=== PATIENT | female | born 1995 | race Caucasian/White ===

== ENCOUNTER → 2017-03-31 | Outpatient (CLI) | payer OTHER ==
--- NOTE | 2017-03-31 14:50 | RADONC ---
RADIATION ONCOLOGY CONSULTATION NOTE: DATE: 03/31/2017 CHART NO: [id number] DIAGNOSIS: Left parotid cancer. STAGE: I, T1N0MX. ECOG PERFORMANCE STATUS: 0 Ms. 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 She is now presenting for discussion of any need for radiation therapy as well as for a scheduling routine followup. HISTORY OF PRESENT ILLNESS: The patient reports that she had a small bump over her left parotid gland since she was in high school. This has gone on for many years but more recently began to increase somewhat. On 03/02/2017, the patient underwent left total parotidectomy with facial nerve identification, left modified radical neck dissection levels II, III, IV with sparing of the sternocleidomastoid mastoid muscle, internal jugular vein and the eleventh cranial nerve. Pathology revealed a small well differentiated mucoepidermoid carcinoma measuring 0.9 cm x 0.8 cm x 0.8 cm. The specimen size was 5 cm x 2.5 cm x 1.3 cm. All margins of resection were negative for malignancy, the closest margin being 0.3 cm away. Lymph vascular invasion was not identified. Perineural invasion was not identified. A total of 14 neck nodes were sampled and all were negative for malignancy. One intraparotid lymph node was found and was also negative for malignancy. The patient has done well since surgery and is now presenting for discussion of any possible external beam radiation therapy as well as for followup. PAST MEDICAL HISTORY: The patient's past medical history is positive for asthma. ALLERGIES: The patient has NO KNOWN DRUG ALLERGIES. SOCIAL HISTORY: The patient does not smoke cigarettes. She drinks alcohol rarely. FAMILY HISTORY: The patient's family history is positive for paternal grandmother with thyroid cancer, a paternal aunt with ovarian cancer, and a maternal aunt with colon cancer. REVIEW OF SYSTEMS: The patient's review of systems is positive for some difficulty chewing, but is otherwise noncontributory. She denies nausea, vomiting, fevers, chills, night sweats, diplopia, headaches, anxiety or depression, anorexia, weight loss, visual disturbances, chest pain, urinary or bowel difficulties, bone pain, or neurological problems. IMAGING STUDIES: I do not at this time have the patients CT scan here to actually view. ASSESSMENT: The patient is clinically doing well at this point. We have reviewed the NCCN guidelines with regards to a low grade parotid tumor, which is totally resected. The recommendation is to observe unless there is perineural invasion or tumor spillage. Since neither are present in this patient with her longstanding low grade small malignancy, I believe observation is the preferred management option. Radiation would be quite toxic. I have discussed these NCCN guidelines with her in detail and indeed she already had a copy of this. Of concern, the patient had a PET scan done on 02/25/2017 in [place], [place]. PET/CT scan revealed a prominent focal metabolic activity just superior to the uterus presumably within the left ovary. The SUV value was 13.6. No other areas of abnormality were seen. They noted that the finding was nonspecific, but I have recommended pelvic ultrasound be undertaken. I have therefore ordered a pelvic ultrasound to be done. I am also referring this patient to a INSTRUMENTATION SPECIALIST Physician In addition, I have set this patient up for discussion at our multidisciplinary tumor conference. I will be discussing the recommendations of the tumor conference with Ms. Peacock, following the meeting. CIELO
== END ==
LOC: M ONCR 09:09
PROVIDERS: ATTEND Radiology Radiation Oncology
DX: C07 Malignant neoplasm of parotid gland (principal)

== ENCOUNTER → 2017-04-05 | Outpatient (CLI) | payer OTHER ==
--- NOTE | 2017-04-05 21:17 | REP ---
Clinical: History of carcinoma with abnormality on recent PET scan. Technique: Transabdominal pelvic ultrasound followed by transvaginal examination for better evaluation of the endometrium and adnexa with color Doppler evaluation of the ovaries . Comparison/Correlation: None. Findings: Normal retroverted uterus measures 7.3 x 4.8 x 5.9 cm. Endometrial complex measures 3.8 mm in thickness. No discrete uterine or endometrial abnormalities are appreciated. The bilateral ovaries are normal in appearance and vascularity without torsion. Right ovary measures 3.4 x 3.4 x 2.5 cm; RI=0.56 and includes 1.6 cm dominant follicle. Left ovary measures 3.4 x 2.4 x 1.6 cm; RI=0.42. Small amount of free fluid in the pelvis is nonspecific. No adnexal mass lesions are appreciated. Bladder is unremarkable and measures 8.5 x 4.9 x 7.8 cm. Impression: Essentially normal pelvic ultrasound. No significant abnormalities are identified by ultrasound. Signed by Randy Hanson MD 04/05/2017 09:09 P
== END ==
LOC: M RAD 12:44
PROVIDERS: ATTEND Radiology Radiation Oncology
DX: C07 Malignant neoplasm of parotid gland (principal)

== ENCOUNTER → 2017-07-06 | Outpatient (CLI) | payer OTHER ==
--- NOTE | 2017-07-06 12:26 | RADONC ---
RADIATION ONCOLOGY FOLLOWUP NOTE: DATE: 07/06/2017 CHART NUMBER: [id number]. DIAGNOSIS: Left parotid cancer. STAGE: I, T1N0M0. ECOG PERFORMANCE STATUS: Zero. FOLLOWUP NOTE: Ms. Peacock is a very pleasant, 21-year-old white female with the diagnosis of what appears to be a stage I, T1N0M0, low grade mucoepidermoid carcinoma of left parotid who is presenting to us today 4 months post surgical excision and lymph node dissection. The patient presents today reporting that she has some tenderness along her surgical scar. She has no other complaints at this time related to her radiation therapy or disease. She is having no difficulty swallowing. No bone pain or other issues. REVIEW OF SYSTEMS: The patient's review of systems is noncontributory. Denies nausea, vomiting, fevers, chills, night sweats, diplopia, headaches, anxiety or depression, anorexia, weight loss, visual disturbances, chest pain, urinary or bowel difficulties, bone pain, or neurological problems. PHYSICAL EXAMINATION: The patient is a well-developed, well-nourished, white female in no acute distress. HEENT exam is normocephalic, atraumatic. Extraocular movements are intact. Examination of the patient's oral cavity reveals no evidence of nodularity, ulceration or disease. There is no palpable preauricular, cervical, supraclavicular, infraclavicular or axillary lymphadenopathy present. She has a well-healed surgical scar present over her left parotid and upper neck region. Her lungs are clear to auscultation and percussion. Heart is regular rate and rhythm. Her abdomen is benign with no hepatosplenomegaly, masses or tenderness. ASSESSMENT: The patient is clinically KEN at this time. She has been seen by the [facility] doctors for evaluation of her hypermetabolic uptake in the pelvis. She will continue close followup with them and I defer to their expertise. She is scheduled to be seen by the head and neck division next week for followup and further care with regards to her left parotid lesion. I have tentatively set up the patient to be seen by me again in 3 months' time. cc: Cha Sheppard cc: Malick Ivory MD
== END ==
LOC: M ONCR 11:16
PROVIDERS: ATTEND Radiology Radiation Oncology
DX: C07 Malignant neoplasm of parotid gland (principal)

== ENCOUNTER → 2018-07-13 | Outpatient (CLI) | payer OTHER ==
[~2018-07-13] MED LIST: ISOVUE-370 76% 100ML VIAL (Q9967) As Ordered
== END ==
LOC: M RADPRO 12:01
DX: N97.9 Female infertility, unspecified (principal)
CPT/HCPCS: 58340

== ENCOUNTER 2018-09-26 11:53 | Day surgery (SDC) | payer OTHER ==
[~2018-09-26 11:53] MED LIST changes: -ISOVUE-370 76% 100ML VIAL (Q9967) As Ordered; +NS 1,000 ML IV
[2018-09-26] MEDS ORDERED: PROPOFOL 200 MG/20 ML VIAL As Ordered ×2 (13:25→13:26)
[2018-09-26] MEDS ORDERED: fentaNYL 100 MCG/2 ML INJECTION (J3010) As Ordered ×2 (13:54→14:22)
[2018-09-26] MEDS ORDERED: LIDOCAINE 2% INJ 100 MG/5 ML SDV (FOR ANES.) As Ordered (13:54)
== END 2018-09-26 15:01 | disposition home or self-care (01) ==
LOC: M OPP 11:53
DX: K20.9 Esophagitis, unspecified (principal); K29.70 Gastritis, unspecified, without bleeding; R12 Heartburn
CPT/HCPCS: 43239

== ENCOUNTER → 2019-10-17 | Outpatient (CLI) | payer OTHER ==
[~2019-10-17] MED LIST changes: +ISOVUE-370 76% 100ML VIAL (Q9967) As Ordered ONE; +MULT1TAB10 PO; -NS 1,000 ML IV; +PANT40TA3 PO; +VITA500055 PO
--- NOTE | 2019-10-17 13:45 | REP ---
CT ABDOMEN AND PELVIS WITHOUT AND WITH IV CONTRAST: Without oral contrast. CT urography. Multiphase postcontrast imaging. HISTORY: Hematuria. CT CONTRAST DOSE: 100 mL of intravenous Isovue 370. CT FINDINGS: Digital preliminary pediatric np radiograph is unremarkable. Bowel gas pattern is normal. The lung bases are clear on axial CT images. There are numerous moderate size peripherally calcified gallstones filling the lumen of the gallbladder. No intrahepatic biliary ductal dilation is seen. No focal liver lesion is seen. Spleen is unremarkable. No adrenal lesion is observed on either side. No abnormality is visible in the pancreas. There is no evidence of intrarenal calculus or hydronephrosis. Kidneys enhance symmetrically. No renal mass or cyst is seen. Delayed postcontrast acquisition shows no filling defect in the collecting system on either side. The ureters describe a normal course to the urinary bladder. No bladder mass is seen. No bladder calculus is observed. Uterus is retroverted retroflexed but otherwise unremarkable. No ovarian abnormality is seen. No pelvic mass or adenopathy is seen. No retroperitoneal adenopathy is observed. Small and large bowel loops are unremarkable. A normal appendix is seen. IMPRESSION: Cholelithiasis with multiple stones filling the lumen of the gallbladder. No evidence of urolithiasis. Retroverted retroflexed uterus. Otherwise negative. Electronically Signed by Андрей Newman MD 10/17/2019 05:40 P
== END ==
LOC: M RAD 07:11
PROVIDERS: ATTEND Emergency Medicine
DX: R31.9 Hematuria, unspecified (principal); K80.20 Calculus of gallbladder without cholecystitis without obstruction; N85.4 Malposition of uterus
CPT/HCPCS: 74178; Q9967

== ENCOUNTER 2019-12-26 17:28 | Emergency (ER) | payer OTHER ==
[~2019-12-26] VITALS: Ht 170.2 cm; Wt 117.4 kg
[~2019-12-26 17:28] MED LIST changes: -ISOVUE-370 76% 100ML VIAL (Q9967) As Ordered ONE
[2019-12-26] MEDS ORDERED: PRENTAB9 PO (17:41)
[2019-12-26] MEDS ORDERED: ONDA-83 PO (17:41)
[2019-12-26] MEDS ORDERED: DULO30CA9 PO (17:42)
[2019-12-26] MEDS ORDERED: NS 1,000 ML IV ONE (18:15)
[2019-12-26] MEDS ORDERED: KETOROLAC 30 MG/ML VIAL (J1885) IV ONE (18:15)
[2019-12-26 19:12] LABS: BASO # 0.1 10^3/uL (0.0-0.2); BASO % 0.5 % (0.0-1.0); EOS # 0.4 10^3/uL (0.0-0.5); EOS % 2.8 % (0.0-3.0); HEMATOCRIT 39.8 % (36.0-47.0); HEMOGLOBIN 13.1 g/dl (12.0-15.5); LYMPH # 3.9 10^3/uL (1.5-5.0); LYMPH % 29.7 % (24.0-44.0); MEAN CORPUSCULAR HEMOGLOBIN 29.2 pg (27.0-33.0); MEAN CORPUSCULAR HGB CONC 32.9 g/dl (32.0-36.5); MEAN CORPUSCULAR VOLUME 88.8 fl (80.0-96.0); MONO # 0.9 10^3/uL (0.0-0.8); MONO % 6.5 % (0.0-5.0); NEUTROPHILS # 7.9 10^3/uL (1.5-8.5); PLATELET COUNT, AUTOMATED 378 10^3/uL (150-450); RED BLOOD COUNT 4.48 10^6/uL (4.00-5.40); WHITE BLOOD COUNT 13.1 10^3/uL (4.0-10.0)
--- NOTE | 2019-12-26 19:27 | REPVR ---
PROCEDURE INFORMATION: Exam: US Pelvis Complete, Transabdominal and US Pelvis, Transvaginal Exam date and time: 12/26/2019 6:32 PM Age: 24 years old Clinical indication: Abdominal pain; Left lower quadrant; Additional info: Llq pain/irreg menses TECHNIQUE: Imaging protocol: Real-time transabdominal and transvaginal pelvic ultrasound (complete) with image documentation. Transvaginal imaging was used for better evaluation of the endometrium and adnexa. COMPARISON: US PELVIC NON-OB COMPLETE 04/05/2017 1:02 PM FINDINGS: Uterus/cervix: The uterus measures 7.7 cm x 4.0 cm x 5.0 cm. The endometrial stripe measures 8.1 mm. Right adnexa: Unremarkable. The right ovary measures 3.7 cm x 1.8 cm x 1.9 cm. No mass. Normal ovarian blood flow. Left adnexa: Unremarkable. The left ovary measures 4.1 cm x 2.8 cm x 2.2 cm. No mass. Normal ovarian blood flow. Free fluid: There is a tiny amount of free intraperitoneal fluid within the posterior cul-de-sac. Bladder: The urinary bladder is empty and not adequately visualized. Other findings: No intramural mass is identified. IMPRESSION: 1. Unremarkable uterus and ovaries. 2. Tiny free intraperitoneal fluid, nonspecific but likely physiologic. Electronically signed by: Luis Fernando Schumacher On 12/26/2019 19:27:39 PM
[2019-12-26 19:33] LABS: ALBUMIN 4.4 GM/DL (3.2-5.2); BILIRUBIN,DIRECT 0.1 MG/DL (0.0-0.2); BILIRUBIN,TOTAL 0.7 MG/DL (0.2-1.0); TOTAL PROTEIN 8.2 GM/DL (6.4-8.2)
[2019-12-26] MEDS ORDERED: ISOVUE-370 76% 100ML VIAL (Q9967) As Ordered ONE (19:40)
--- NOTE | 2019-12-26 20:45 | REPVR ---
PROCEDURE INFORMATION: Exam: CT Abdomen And Pelvis With Contrast Exam date and time: 12/26/2019 7:59 PM Age: 24 years old Clinical indication: Abdominal pain; Localized; Left lower quadrant (llq); Additional info: Llq pain TECHNIQUE: Imaging protocol: Computed tomography of the abdomen and pelvis with intravenous contrast. Radiation optimization: All CT scans at this facility use at least one of these dose optimization techniques: automated exposure control; mA and/or kV adjustment per patient size (includes targeted exams where dose is matched to clinical indication); or iterative reconstruction. Contrast material: ISOVUE 370; Contrast volume: 100 ml; Contrast route: IV; COMPARISON: CT ABD PELVIS W/O FOL BY WIT 10/17/2019 7:44 AM FINDINGS: Liver: Findings suspicious for mild diffuse fatty infiltration of the liver. No focal hepatic lesion or intrahepatic duct dilatation. Gallbladder and bile ducts: Calcified stones fill the gallbladder. No pericholecystic inflammation. Normal caliber common bile duct. Pancreas: Unremarkable. No ductal dilation. Spleen: Unremarkable. No splenomegaly. Adrenals: Normal. No mass. Kidneys and ureters: Unremarkable. No stones. No hydronephrosis. Stomach and bowel: There is a small focus of hazy density and stranding within the fat adjacent to the distal descending colon on axial images 109 through 113 of series 201 consistent with epiploic appendagitis. No colonic diverticulum or diverticulitis is identified. The stomach and small bowel are unremarkable. Appendix: No evidence of appendicitis. Intraperitoneal space: There is trace free fluid within the posterior cul-de-sac. Vasculature: Unremarkable. No abdominal aortic aneurysm. Lymph nodes: Unremarkable. No enlarged lymph nodes. Bladder: Unremarkable as visualized. Reproductive: Unremarkable as visualized. Bones/joints: No acute fracture. Soft tissues: Unremarkable. IMPRESSION: 1. Epiploic appendagitis of the distal descending colon. 2. Findings suspicious for diffuse fatty infiltration of the liver. 3. Cholelithiasis. Electronically signed by: Luis Fernando Schumacher On 12/26/2019 20:45:39 PM
[2019-12-26] MEDS ORDERED: NORC1TAB7 PO (21:34)
[2019-12-26] MEDS ORDERED: IBUP80TA PO (21:56)
[2019-12-26 22:13] VITALS: BP 116/77
--- NOTE | 2019-12-27 07:07 | ED PDOC ---
Post-Departure Follow-Up radiology report faxed to [facility] Freya Coley MD Dec 27, 2019 07:07
== END 2019-12-26 21:50 | disposition home or self-care (01) ==
LOC: M ED 17:28
DX: K63.89 Other specified diseases of intestine (principal); J45.909 Unspecified asthma, uncomplicated; K21.9 Gastro-esophageal reflux disease without esophagitis; E66.9 Obesity, unspecified; K80.20 Calculus of gallbladder without cholecystitis without obstruction; Z79.899 Other long term (current) drug therapy
CPT/HCPCS: 74177; 76830; 76856; 80047; 80076; 81001; 83690; 84702; 85025; 87086; 93976; 96374; 99284; G0463; J1885; Q9967

== ENCOUNTER → 2020-10-10 | Outpatient (CLI) | payer OTHER ==
[~2020-10-10] MED LIST changes: +DULO30CA9 PO; +IBUP80TA PO; +NORC1TAB7 PO; +ONDA-83 PO; +PANT40TA29 PO; -PANT40TA3 PO; +PRENTAB9 PO
--- NOTE | 2020-10-11 08:51 | REPVR ---
PROCEDURE INFORMATION: Exam: MR Neck Without and With Contrast Exam date and time: 10/11/2020 1:56 AM Age: 25 years old Clinical indication: Condition or disease; Other: Malignant neoplasm of parotid; Prior surgery; Surgery date: 6+ months; Surgery type: PT states parotidectomy TECHNIQUE: Imaging protocol: MR images of the neck without and with intravenous contrast. Contrast material: PROHANCE; Contrast volume: 20 ml; Contrast route: INTRAVENOUS (IV); COMPARISON: No relevant prior studies available. FINDINGS: Nasopharynx: Unremarkable. Oropharynx: Unremarkable. Hypopharynx: Unremarkable. Larynx: Unremarkable. Submandibular/Parotid glands: There is a 9 mm nodule within the left parotid gland, not well characterized on this exam. There are additional subcentimeter enhancing nodules within both parotid glands. These could represent intraparotid lymph nodes. However, in this patient with reported prior history of parotid cancer, direct comparison to prior studies is essential. Retropharyngeal space: Unremarkable. Vasculature: Unremarkable. Lymph nodes: See "Submandibular/Parotid glands" finding. Soft tissues: Unremarkable. There Bones/joints: Unremarkable. IMPRESSION: There is a 9 mm nodule within the left parotid gland, not well characterized on this exam. There are additional subcentimeter enhancing nodules within both parotid glands. These could represent intraparotid lymph nodes. However, in this patient with reported prior history of parotid cancer, direct comparison to prior studies is essential. In the absence of prior studies for comparison purposes, follow-up postcontrast CT scan is recommended. Electronically signed by: Russell Falcon On 10/11/2020 08:50:59 AM
== END ==
LOC: M PLARAD 08:19
PROVIDERS: ATTEND Specialist
DX: C07 Malignant neoplasm of parotid gland (principal)

== ENCOUNTER → 2020-11-04 | Outpatient (CLI) | payer OTHER ==
--- NOTE | 2020-11-04 17:46 | REP ---
INDICATION: RECURRENCE AND METS MALIGNANT NEOPLASM OF PAROTID. History of left parotid surgery in 2017. Now has nodules in the parotid bed. Rule out recurrence or metastasis. COMPARISON: Comparison MRI study of the head and neck soft tissues is from October 10, 2020.. TECHNIQUE: Fifty minutes following the intravenous injection of a 9.19 mCi dose of F-18 FDG, three-dimensional PET scintigraphy is acquired from the skull base to the proximal thighs. Triplanar noncontrast CT scanning is acquired through the same anatomic range for attenuation correction, and image registration with scan parameters optimized to minimize radiation exposure to the patient. PET scintigraphy and CT datasets were fused and displayed on a workstation with multiplanar and projection display capability. FINDINGS: Postsurgical changes are seen in the left parotid bed suggesting partial parotid resection on the left. No abnormal hypermetabolic uptake is seen in either parotid gland or in either submandibular gland. No abnormal adenopathy or neck mass is seen. Head and neck soft tissues are otherwise unremarkable. No abnormal hypermetabolic uptake is seen within the thorax. No abnormal renate or pulmonary parenchymal uptake is observed. In the abdomen and pelvis, normal a patent, splenic, gastrointestinal, and genitourinary FDG accumulation is seen. No abnormal hypermetabolic uptake is seen in the abdomen or pelvis. Incidental note is made of numerous mineralized gallstones filling the gallbladder. IMPRESSION: Status post partial parotid resection on the left with postoperative changes. No abnormal hypermetabolic uptake is seen. Cholelithiasis is noted as an incidental finding. <Electronically signed by Kristian Newman > 11/04/20 [id number]
== END ==
LOC: M PLARAD 13:31
PROVIDERS: ATTEND Otolaryngology
DX: C07 Malignant neoplasm of parotid gland (principal)